=== PATIENT | female | born 1985 | race African-American/Black ===

== ENCOUNTER 2016-12-14 02:06 | Emergency (ER) | payer BC, OTHER ==
[2016-12-14] MEDS ORDERED: AZITHROMYCIN 250 MG TABLET PO ONE (02:38)
--- NOTE | 2016-12-14 02:45 | ED Physician Documentation ---
General Adult - HISTORIAN Historian: patient - HPI Stated Complaint: Flu Like Symptoms Chief Complaint: General Adult Additional Information: Dry cough for weeks. Todays she feels hot and cold, cough wet, sinus congestion. - ROS CONST: fever (feverish) - PAST HX Past History: hypertension Allergies/Adverse Reactions: Allergies Allergy/AdvReac Type Severity Reaction Status Date / Time No Known Allergies Allergy Verified 12/14/16 02:20 Home Medications: Ambulatory Orders Medication Instructions Recorded Azithromycin [Zithromax] 250 mg PO DAILY #4 tablet 12/14/16 - SOCIAL HX Smoking History: cigarettes - FAMILY HX Family History: No - VITAL SIGNS Vital Signs: Vital Signs Temp Pulse Resp BP Pulse Ox 98.9 F 107 H 20 127/76 98 12/14/16 02:10 12/14/16 02:10 12/14/16 02:10 12/14/16 02:10 12/14/16 02:10 - REVIEWED ASSESSMENTS Nursing Assessment Reviewed: Yes Vitals Reviewed: Yes ED Results Lab/Radiology - Orders Orders: ED Orders Category Date Time Status Azithromycin [Zithromax] Med 12/14/16 02:38 Once 500 mg PO NOW ONE General Adult Physical Exam - PHYSICAL EXAM GENERAL APPEARANCE: mild distress EENT: eye inspection normal, ENT inspection normal, pharynx normal, other ( tender to palpation over facial sinus areas) NECK: normal inspection, supple RESPIRATORY: no resp distress, chest non-tender, breath sounds normal CVS: reg rate & rhythm, heart sounds normal, no murmur BACK: other (supple movements w/o pain) SKIN: warm/dry, normal color EXTREMITIES: no evidence of injury NEURO: CN's nml as tested, motor nml, sensation nml, cognition normal Discharge Clincal Impression: Sinusitis Qualifiers: Sinusitis location: maxillary Chronicity: acute Recurrence: not specified as recurrent Qualified Code(s): J01.00 - Acute maxillary sinusitis, unspecified Prescriptions: Azithromycin [Zithromax] 250 mg PO DAILY #4 tablet Home Medications: Ambulatory Orders Azithromycin [Zithromax] 250 mg PO DAILY #4 tablet 12/14/16 Condition: Good Disposition: 01 HOME, SELF-CARE Decision to Admit: NO Decision Time: 02:45
[2016-12-14 02:48] VITALS: BP 138/58
== END 2016-12-14 02:46 | disposition home or self-care (01) ==
LOC: ED 02:06
DX: J01.00 Acute maxillary sinusitis, unspecified (principal); F17.210 Nicotine dependence, cigarettes, uncomplicated
CPT/HCPCS: 87400; 99283

== ENCOUNTER 2016-12-15 15:10 | Emergency (ER) | payer BC ==
[2016-12-14 02:48] VITALS: BP 138/58
--- NOTE | 2016-12-15 16:19 | ED Physician Documentation ---
Upper Respiratory Symptoms - HISTORIAN Historian: patient - HPI Stated Complaint: chills/cough Chief Complaint: Cough/ Upper Respiratory Onset: days ago (7) Duration: constant Associated Symptoms: runny nose, sinus pain, sinus drainage, sore throat. denies: fever, chills Worsened by Deep Breath: No Further Comments: yes (31 yo female presents again to ER with same c/o as yesterday. congestion, body aches, mild cough, nonproductive. No reported fevers. Has tested negative for Inlfuenza twice. Was started on Z-kenny yesterday, says she is no better.) - ROS CONST/EYES: denies: weakness CVS/RESP: none - PAST HX Lung Disease: none Allergies/Adverse Reactions: Allergies Allergy/AdvReac Type Severity Reaction Status Date / Time No Known Allergies Allergy Verified 12/15/16 15:43 Home Medications: Ambulatory Orders Medication Instructions Recorded Azithromycin [Zithromax] 250 mg PO DAILY #4 tablet 12/14/16 Albuterol Sulfate [ProAir 2 puff INH Q6H #1 inhaler 12/15/16 [facility]] - SOCIAL HX Smoking History: greater than 1 pack/day Alcohol Use: none Drug Use: none - FAMILY HX Family History: none - VITAL SIGNS Vital Signs: Vital Signs Temp Pulse Resp BP Pulse Ox 99.1 F 88 18 138/58 97 12/15/16 15:31 12/15/16 15:31 12/15/16 15:31 12/14/16 02:46 12/15/16 15:31 - REVIEWED ASSESSMENTS Nursing Assessment Reviewed: Yes Vitals Reviewed: Yes Upper Respiratory Symptoms - EXAM General Appearance: no acute distress EENT: eyes nml inspection, nml ENT inspection, lids & conjunct. nml Neck: normal inspection Respiratory: no resp. distress, wheezes (slight bilateral) Abdomen: non-tender CVS: reg rate & rhythm Skin: color nml, no rash Neuro/Psych: oriented x3 Discharge Clincal Impression: Cough Prescriptions: Albuterol Sulfate [ProAir [employer]piClick] 2 puff INH Q6H #1 inhaler Additional Instructions: Continue Azithromycin Use Albuterol inhaler, 2 puffs four times daily for 3 days then as needed Home Medications: Ambulatory Orders Azithromycin [Zithromax] 250 mg PO DAILY #4 tablet 01/18/17 Albuterol Sulfate [ProAir [employer]] 2 puff INH Q6H #1 inhaler 12/15/16 Condition: Good Disposition: 01 HOME, SELF-CARE Decision to Admit: NO Decision Time: 16:19
== END 2016-12-15 16:25 | disposition home or self-care (01) ==
LOC: ED 15:10
DX: R05 Cough (principal); F17.210 Nicotine dependence, cigarettes, uncomplicated
CPT/HCPCS: 99283